=== PATIENT | female | born 1980 | race Caucasian/White ===

== ENCOUNTER → 2016-09-27 | Outpatient (REF) | payer BC | LOC: M LAB REF 16:16 | PROVIDERS: ATTEND Physician Assistant | DX: N39.0 Urinary tract infection, site not specified (principal) ==

== ENCOUNTER 2017-01-09 16:00 | Emergency (ER) | payer OTHER, BC ==
[~2017-01-09] VITALS: Ht 162.6 cm; Wt 54.4 kg
[2017-01-09] MEDS ORDERED: CITA20TA4 (16:25)
[2017-01-09] MEDS ORDERED: PREM.6256 (16:25)
[2017-01-09] MEDS ORDERED: METO50TA2 (16:25)
[2017-01-09] MEDS ORDERED: CLON0.12 (16:25)
[2017-01-09] MEDS ORDERED: POTA10TAB (16:25)
[2017-01-09] MEDS ORDERED: AMLO5TAB2 (16:25)
[2017-01-09 17:49] VITALS: BP 146/86
--- NOTE | 2017-01-10 07:31 | REP ---
LEFT HAND SERIES, COMPLETE: 01/09/2017. Clinical history: Trauma. Findings: Four views show distal radius and ulna, carpal bones, metacarpals and phalanges without fracture or focal lesion. I see no avulsion or erosion. No foreign body. Impression: 1. No fracture, avulsion, subluxation, foreign body or focal bone lesion. Signed by Isaiah Mitchell MD 01/10/2017 05:14 P
--- NOTE | 2017-01-10 07:32 | REP ---
LEFT FOOT SERIES COMPLETE: 01/09/2017. Clinical history: Trauma. Findings: No prior study. Four views show the subtalar joints intact. No heel spurs. Talus and calcaneus without fracture or focal lesion. There are a couple of accessory ossicles adjacent to the medial margin of the navicular. Talonavicular and calcaneocuboid joints are normal. Tarsal bones and their articulations intact as are their metatarsals adjacent. MTP joint shows minor degenerative change of the great toe while the other MTP joints, phalanges and IP joints grossly intact. Impression: 1. No visible or displaced fracture, avulsion, subluxation or acute bony finding. There are very minimal degenerative changes first MTP joint. Signed by Isaiah Mitchell MD 01/10/2017 05:14 P
== END 2017-01-09 18:24 | disposition home or self-care (01) ==
LOC: M ED 16:55
DX: S09.90XA Unspecified injury of head, initial encounter (principal); S93.602A Unspecified sprain of left foot, initial encounter; S63.92XA Sprain of unspecified part of left wrist and hand, initial encounter; W03.XXXA Other fall on same level due to collision with another person, initial encounter; Y92.238 Other place in hospital as the place of occurrence of the external cause; Y93.89 Activity, other specified; Y99.0 Civilian activity done for income or pay

== ENCOUNTER → 2017-02-22 | Outpatient (CLI) | payer BC ==
[~2017-02-22] MED LIST: AMLO5TAB2; CITA20TA4; CLON0.12; METO50TA2; POTA10TAB; PREM.6256
[2017-02-22 12:01] LABS: PERCENT SATURATION 35.2 % (13.2-37.4)
[2017-02-23 11:02] LABS: PRETREATED FOLATE FOR RBCFOL 9.4 NG/ML
== END ==
LOC: M LAB 10:39
PROVIDERS: ATTEND Nurse Practitioner Adult Health
DX: D64.9 Anemia, unspecified (principal)

== ENCOUNTER 2017-04-04 17:12 | Emergency (ER) | payer BC ==
[~2017-04-04] VITALS: Ht 167.6 cm; Wt 59.3 kg
[~2017-04-04 17:12] MED LIST changes: -METO50TA2; +METO50TA7
[2017-04-04] MEDS ORDERED: KETOROLAC 60 MG/2 ML VIAL (J1885) IM ONE (18:15)
[2017-04-04] MEDS ORDERED: METHOCARBAMOL 500 MG TAB PO ONE (18:15)
[2017-04-04] MEDS ORDERED: IBUP80TA PO (18:28)
[2017-04-04] MEDS ORDERED: ROBA500T PO (18:28)
[2017-04-04 18:31] VITALS: BP 127/89
== END 2017-04-04 18:36 | disposition home or self-care (01) ==
LOC: M ED 17:12
DX: S39.012A Strain of muscle, fascia and tendon of lower back, initial encounter (principal); I10 Essential (primary) hypertension; F32.9 Major depressive disorder, single episode, unspecified; X58.XXXA Exposure to other specified factors, initial encounter; Y92.89 Other specified places as the place of occurrence of the external cause; Y93.89 Activity, other specified; Y99.9 Unspecified external cause status
CPT/HCPCS: 81001; 96372; 99282; J1885

== ENCOUNTER → 2017-04-06 | Outpatient (REF) | payer BC ==
[~2017-04-06] MED LIST changes: +Birth control PO; +IBUP80TA PO; +ROBA500T PO; +TOBR0.3S37 OS
== END ==
LOC: M LAB REF 16:20
PROVIDERS: ATTEND Nurse Practitioner Adult Health
DX: N92.6 Irregular menstruation, unspecified (principal)

== ENCOUNTER → 2017-04-13 | Outpatient (REF) | payer BC | LOC: M LAB REF 17:14 | PROVIDERS: ATTEND Nurse Practitioner Adult Health | DX: N93.9 Abnormal uterine and vaginal bleeding, unspecified (principal) ==

== ENCOUNTER 2017-06-22 22:37 | Emergency (ER) | payer BC ==
[~2017-06-22] VITALS: Ht 167.6 cm; Wt 55.9 kg
[2017-06-22 22:37] VITALS: BP 150/99
[~2017-06-22 22:37] MED LIST changes: -Birth control PO; -TOBR0.3S37 OS
[2017-06-22] MEDS ORDERED: Birth control PO (22:46)
[2017-06-22] MEDS ORDERED: TOBR0.3S37 OS (23:41)
[2017-06-22] MEDS ORDERED: FLUORESCEIN OPHTH 1 MG STRIP OS ONE (23:45)
[2017-06-22] MEDS ORDERED: TETRACAINE 0.5% OPHTH SOLN 4ML OS ONE (23:45)
== END 2017-06-23 00:29 | disposition home or self-care (01) ==
LOC: M ED 22:37
DX: S05.02XA Injury of conjunctiva and corneal abrasion without foreign body, left eye, initial encounter (principal); X58.XXXA Exposure to other specified factors, initial encounter; Y92.89 Other specified places as the place of occurrence of the external cause; Y93.89 Activity, other specified; Y99.8 Other external cause status; Z79.899 Other long term (current) drug therapy; Z87.891 Personal history of nicotine dependence

== ENCOUNTER → 2017-12-26 | Outpatient (CLI) | payer BC | LOC: M RAD 17:07 | DX: N20.0 Calculus of kidney (principal) | CPT/HCPCS: 76775 ==

== ENCOUNTER → 2018-03-05 | Outpatient (CLI) | payer BC ==
[2018-03-05 13:39] LABS: BASO # 0.1 10^3/uL (0.0-0.2); BASO % 1.5 % (0.0-1.0); EOS % 0.2 % (0.0-3.0); HEMATOCRIT 39.5 % (36.0-47.0); HEMOGLOBIN 12.8 g/dl (12.0-15.5); IMMATURE GRANULOCYTE % 0.2 % (0-3.0); LYMPH # 1.6 10^3/uL (1.5-4.5); LYMPH % 29.9 % (24.0-44.0); MEAN CORPUSCULAR HEMOGLOBIN 28.9 pg (27.0-33.0); MEAN CORPUSCULAR HGB CONC 32.4 g/dl (32.0-36.5); MEAN CORPUSCULAR VOLUME 89.2 fl (80.0-96.0); MONO # 0.3 10^3/uL (0.0-0.8); MONO % 4.6 % (0.0-5.0); NEUTROPHILS # 3.5 10^3/uL (1.8-7.7); NEUTROPHILS % 63.6 % (36.0-66.0); PLATELET COUNT, AUTOMATED 253 10^3/uL (150-450); RED BLOOD COUNT 4.43 10^6/uL (4.00-5.40); RED CELL DISTRIBUTION WIDTH 13.7 % (11.5-14.5); WHITE BLOOD COUNT 5.5 10^3/uL (4.0-10.0)
[2018-03-05 14:02] LABS: ALBUMIN 3.5 GM/DL (3.2-5.2); ALKALINE PHOSPHATASE 56 U/L (45-117); ALT/SGPT 20 U/L (12-78); ANION GAP 6 MEQ/L (8-16); AST/SGOT 15 U/L (7-37); BILIRUBIN,TOTAL 0.4 MG/DL (0.2-1.0); BLOOD UREA NITROGEN 12 MG/DL (7-18); CALCIUM LEVEL 8.7 MG/DL (8.5-10.1); CARBON DIOXIDE LEVEL 26 MEQ/L (21-32); CHLORIDE LEVEL 106 MEQ/L (98-107); CREATININE FOR GFR 0.85 MG/DL (0.55-1.30); GLOMERULAR FILTRATION RATE > 60.0 (>60); GLUCOSE, FASTING 77 MG/DL (70-100); POTASSIUM SERUM 4.2 MEQ/L (3.5-5.1); RHEUMATOID FACTOR QUANT < 10.0 IU/ML (<15.0); SODIUM LEVEL 138 MEQ/L (136-145)
[2018-03-05 14:03] LABS: TOTAL 25(OH) VITAMIN D 25.2 NG/ML (30.0-100.0)
[2018-03-05 14:24] LABS: ERYTHROCYTE SEDIMENTATION RATE 12 mm/hr (0-20)
[2018-03-07 14:19] LABS: ANTINUCLEAR ANTIBODIES DIRECT Negative (Negative)
== END ==
LOC: M LAB 12:53
DX: R51 Headache (principal)
CPT/HCPCS: 84443

== ENCOUNTER → 2018-07-21 | Outpatient (REF) | payer BC | LOC: M LAB REF 17:23 | DX: R30.0 Dysuria (principal) | CPT/HCPCS: 87086 ==

== ENCOUNTER → 2018-12-25 | Outpatient (CLI) | payer BC ==
[~2018-12-25] MED LIST changes: -AMLO5TAB2; +AMLO5TAB6; +Birth control PO; -CITA20TA4; +CITA20TA6; +POTA10808; -POTA10TAB; +TOBR0.3S37 OS
--- NOTE | 2018-12-25 09:56 | REP ---
RENAL ULTRASOUND WITH DUPLEX DOPPLER RENAL ARTERY EVALUATION: Real-time ultrasound evaluation of the kidneys performed. Kidneys are normal in size and echotexture, right kidney measuring 1.5 x 5.6 x 4.7 cm and left kidney 9.5 x 4.9 x 5.0 cm. There is no hydronephrosis bilaterally. Calculus in the lower right kidney measures 7 mm. There may also be a calculus in the upper left kidney 6 mm. Urinary bladder is not optimally distended and therefore not optimally evaluated, although no gross abnormality is seen. Real-time ultrasound evaluation and duplex Doppler interrogation of the renal arteries is performed bilaterally. Peak systolic velocity of the abdominal aorta at the level of the renal arteries is 100 cm/s. Main right renal artery demonstrates a peak systolic velocity of 105 cm/s. Renal to aortic ratio on the right is 1.05. Resistive indices are measured in the upper, middle, and lower thirds of the right kidney and range between 0.50 and 0.59. Acceleration times range between 0.027 and 0.039. Peak systolic velocity in the main left renal artery is 85 cm/s, renal to aortic ratio is 0.85. Resistive indices left kidney range between 0.51 and 0.59. Acceleration times range between 0.022 and 0.045. IMPRESSION: Calculus is suspected in each kidney without hydronephrosis. There is no compelling duplex Doppler sonographic evidence of significant renal artery stenosis bilaterally. Electronically Signed by Gilberto aHrrington MD 12/25/2018 10:39 A
== END ==
LOC: M RAD 07:16
PROVIDERS: ATTEND Nurse Practitioner Adult Health
DX: I10 Essential (primary) hypertension (principal); N20.0 Calculus of kidney

== ENCOUNTER → 2019-01-30 | Outpatient (CLI) | payer BC ==
--- NOTE | 2019-01-30 13:43 | REP ---
Clinical: Nephrolithiasis. Technique: Real time gonzalez scale ultrasound examination using curved array transducer. Findings: Right kidney measures 11.1 x 5.5 x 3.5 cm and includes 6 mm nonobstructing midpole calculus. Kidney is normal in echogenicity, size and reniform shape without hydronephrosis, cystic or renal mass lesion. No perinephric collection. Left kidney measures 10.6 x 4.8 x 5.7 cm and includes 9 mm nonobstructing upper pole calculus. Kidney is normal in echogenicity, size, and reniform shape without hydronephrosis, cystic or renal mass lesion. No perinephric collection. Bladder is incompletely distended but grossly normal in appearance. Impression: 1. Solitary bilateral nonobstructing renal calculi. Electronically Signed by Patricio Whitmore MD 01/30/2019 01:34 P
== END ==
LOC: M RAD 10:25
PROVIDERS: ATTEND Internal Medicine Nephrology
DX: N20.0 Calculus of kidney (principal)

== ENCOUNTER 2020-04-28 21:21 | Emergency (ER) | payer BC ==
[~2020-04-28 21:21] MED LIST changes: +AMLO1TAB24; -AMLO5TAB6
[2020-04-28] MEDS ORDERED: KETOROLAC 30 MG/ML 1ML VIAL IV ONE (21:45)
[2020-04-28] MEDS ORDERED: ONDANSETRON 4MG/2ML VIAL IV ONE (21:45)
[2020-04-28 22:01] LABS: BASO # 0.1 10^3/uL (0.0-0.2); BASO % 0.9 % (0.0-1.0); EOS % 0.2 % (0.0-3.0); HEMATOCRIT 36.8 % (36.0-47.0); LYMPH % 29.2 % (24.0-44.0); MEAN CORPUSCULAR HEMOGLOBIN 29.9 pg (27.0-33.0); MEAN CORPUSCULAR HGB CONC 32.6 g/dl (32.0-36.5); MEAN CORPUSCULAR VOLUME 91.5 fl (80.0-96.0); MONO # 0.6 10^3/uL (0.0-0.8); MONO % 5.4 % (0.0-5.0); NEUTROPHILS # 6.5 10^3/uL (1.5-8.5); NEUTROPHILS % 64.1 % (36.0-66.0); PLATELET COUNT, AUTOMATED 259 10^3/uL (150-450); RED BLOOD COUNT 4.02 10^6/uL (4.00-5.40); WHITE BLOOD COUNT 10.1 10^3/uL (4.0-10.0)
[2020-04-28 22:29] LABS: CALCIUM LEVEL 8.9 MG/DL (8.5-10.1); CREATININE FOR GFR 1.23 MG/DL (0.55-1.30); GLOMERULAR FILTRATION RATE 51.7 (>60); POTASSIUM SERUM 4.6 MEQ/L (3.5-5.1)
--- NOTE | 2020-04-28 23:07 | REPVR ---
PROCEDURE INFORMATION: Exam: CT Abdomen And Pelvis Without Contrast Exam date and time: 04/28/2020 10:57 PM Age: 40 years old Clinical indication: Abdominal pain; Generalized; Additional info: Renal colic left TECHNIQUE: Imaging protocol: Computed tomography of the abdomen and pelvis without contrast. Axial, coronal and sagittal reformatted images were created and reviewed. Radiation optimization: All CT scans at this facility use at least one of these dose optimization techniques: automated exposure control; mA and/or kV adjustment per patient size (includes targeted exams where dose is matched to clinical indication); or iterative reconstruction. COMPARISON: OT RENAL US 01/30/2019 10:31 AM FINDINGS: Liver: Unremarkable. Gallbladder and bile ducts: No radiodense gallstones. No biliary ductal dilatation. Pancreas: Unremarkable. Spleen: Unremarkable. Adrenals: Unremarkable. Kidneys and ureters: Mild left-sided hydronephrosis and perinephric/periureteral edema, secondary to an 8 x 5 mm proximal left ureteral calculus (axial image 53 and coronal image 36). 3 mm proximal left ureteral calculus, just proximal to the obstructing calculus. Nonobstructing bilateral renal calculi. Stomach and bowel: Scattered colonic diverticula without evidence of diverticulitis. No obstruction. No bowel wall thickening. No pneumatosis. Appendix: Normal. Intraperitoneal space: No free fluid. No organized fluid collection. No free air. Vasculature: Unremarkable. No aneurysm. Lymph nodes: No pathologically enlarged lymph nodes. Bladder: Mild circumferential urinary bladder wall thickening, likely secondary to underdistention. Reproductive: Unremarkable. Bones/joints: No acute osseous abnormality. Soft tissues: Small, fat containing umbilical hernia. IMPRESSION: 1. Left obstructive uropathy, as described above. 2. Additional findings, as above. Electronically signed by: Isaiah Velázquez On 04/28/2020 23:07:30 PM
[2020-04-28] MEDS ORDERED: PERC5TAB12 PO (23:27)
[2020-04-28] MEDS ORDERED: ZOFR4TAB16 PO (23:27)
[2020-04-28] MEDS ORDERED: OXYCODONE/APAP 5MG/325MG(BULK FOR ED) 1 TABLET PO ONE (23:30)
[2020-04-28 23:47] VITALS: BP 141/86
[2020-05-21] MEDS ORDERED: FLOM0.4C39 PO (15:04)
== END 2020-04-28 23:55 | disposition home or self-care (01) ==
LOC: M ED 21:21
DX: N20.1 Calculus of ureter (principal); N23 Unspecified renal colic; I10 Essential (primary) hypertension; Z79.899 Other long term (current) drug therapy; Z87.891 Personal history of nicotine dependence
CPT/HCPCS: 74176; 80048; 81001; 83690; 85025; 96374; 96375; 99284; J1885; J2405

== ENCOUNTER → 2020-05-18 | Outpatient (CLI) | payer BC ==
[~2020-05-18] MED LIST changes: +FLOM0.4C39 PO; +OXYB5TAB10 PO; +PERC5TAB12 PO; +ZOFR4TAB16 PO
[2020-05-18 14:13] LABS: INR 0.98; PROTHROMBIN TIME 13.2 SECONDS (11.8-14.0)
[2020-05-18 14:23] LABS: APPEARANCE, URINE CLEAR (CLEAR); BACTERIA, URINE AUTO 1+ (NEGATIVE); BILIRUBIN, URINE AUTO NEGATIVE (NEGATIVE); BLOOD, URINE BLOOD NEGATIVE (NEGATIVE); COLOR, URINE STRAW (YELLOW); GLUCOSE, URINE (UA) AUTO NEGATIVE (NEGATIVE); KETONE, URINE AUTO NEGATIVE (NEGATIVE); LEUKOCYTE ESTERASE, URINE AUTO TRACE (NEGATIVE); NITRITE, URINE AUTO NEGATIVE (NEGATIVE); PROTEIN, URINE AUTO NEGATIVE (NEGATIVE); RBC, URINE AUTO 0 /HPF (0-3); SPECIFIC GRAVITY URINE AUTO 1.004 (1.002-1.035); SQUAMOUS EPITHELIAL CELL UR AU 0 /HPF (0-6); UROBILINOGEN, URINE AUTO 0.2 mg/dL (0.0-2.0); WBC, URINE AUTO 2 /HPF (0-3)
[2020-05-18 14:28] LABS: HCG, SERUM QUALITATIVE NEGATIVE (NEGATIVE)
== END ==
LOC: M LAB 13:27
PROVIDERS: ATTEND Nurse Practitioner Women's Health
DX: Z01.812 Encounter for preprocedural laboratory examination (principal); N13.1 Hydronephrosis with ureteral stricture, not elsewhere classified

== ENCOUNTER → 2020-05-22 | Outpatient (CLI) | payer BC | LOC: M LABSMTC 08:05 | PROVIDERS: ATTEND Anesthesiology | DX: Z01.812 Encounter for preprocedural laboratory examination (principal); Z20.828 Contact with and (suspected) exposure to other viral communicable diseases | CPT/HCPCS: C9803; U0003 ==

== ENCOUNTER 2020-05-27 12:22 | Day surgery (SDC) | payer BC ==
[~2020-05-27] VITALS: Ht 167.6 cm; Wt 64.0 kg
[~2020-05-27 12:22] MED LIST changes: +CONRAY-60 60% 50ML VIAL (Q9961) As Ordered ONE; +LIDOCAINE 2% 100MG/5ML SDV (FOR ANES.) As Ordered ONE; +LR 1,000 ML IV ONE; +MIDAZOLAM INJ 2MG/2ML VIAL (J2250 PER 1MG) As Ordered ONE; +ONDANSETRON 4MG/2ML VIAL As Ordered ONE; -OXYB5TAB10 PO; +ceFAZolin SOD 2 GM in IV 1 EA IV ONE; +dexameTHASONE 4 MG/ML 1ML VIAL (J1100 PER 1MG) As Ordered ONE; +fentaNYL 100 MCG/2 ML INJECTION (J3010) As Ordered ONE; +propofoL 200 MG/20 ML VIAL As Ordered ONE
[2020-05-27] MEDS ORDERED: SCOPOLAMINE 1MG TRANSDERMAL PATCH As Ordered ONE (13:05)
[2020-05-27] MEDS ORDERED: SCOPOLAMINE 1MG TRANSDERMAL PATCH TOP ONE (13:15)
[2020-05-27] MEDS ORDERED: ACETAMINOPHEN 1000MG 100ML IV BTL (OFIRMEV) (J0131 PER 10MG) As Ordered ONE (13:35)
[2020-05-27] MEDS ORDERED: OXYB5TAB10 PO (14:30)
[2020-05-27] MEDS ORDERED: PERCOCET 5MG/325MG TAB PO PRN (14:45)
[2020-05-27] MEDS ORDERED: oxyBUTYnin 5 MG TAB PO PRN (14:45)
[2020-05-27] MEDS ORDERED: HYDROMORPHONE HCL 0.5 MG/ 0.5 ML SYRINGE (J1170 PER 1) IV PRN (14:45)
[2020-05-27] MEDS ORDERED: fentaNYL 100 MCG/2 ML INJECTION (J3010) IV PRN (14:45)
[2020-05-27] MEDS ORDERED: oxyCODONE 5MG TAB PO PRN (14:45)
[2020-05-27] MEDS ORDERED: LR 1,000 ML IV SCH (14:45)
[2020-05-27] MEDS ORDERED: ONDANSETRON 4MG/2ML VIAL IV PRN (14:45)
[2020-05-27 16:00] VITALS: BP 149/90
--- NOTE | 2020-06-04 15:06 | REP ---
RETROGRADE PYELOGRAM: 2-VIEWS HISTORY: Stent placement. FLUOROSCOPY TIME: 20 seconds reported. FINDINGS: A sequence of two [id number] fluoroscopically obtained spot radiographs of the abdomen document left ureteral cannulation, contrast injection, and stent placement. ADAM
[2020-06-05 21:06] LABS: CA Hydro Phos 10 % (.); Ca Ox Monohydrate 10 % (.); Size 5x6 mm (.)
--- NOTE | 2020-06-07 07:26 | RO ---
DATE OF OPERATION: May 27, 2020 PRE-PROCEDURE DIAGNOSIS: Left kidney stone. POST-PROCEDURE DIAGNOSIS: Left kidney stone. PROCEDURES: * Cystoscopy. * Left ureteroscopy with laser lithotripsy and basket extraction of stones. * Left retrograde pyelogram with intraoperative interpretative images. * Left ureteral stent placement. SURGEON: Sam Keyes MD. INSPECTOR PACKAGER: None. ANESTHESIA: General. OPERATIVE INDICATIONS: This is a 40-year-old female who was found to have obstructing proximal left ureteral stone measuring up to 8-9 mm in size. She was brought to the operating room today for treatment. DESCRIPTION OF PROCEDURE: The patient was brought to the operating room and general anesthesia was induced. Prophylactic antibiotics were infused. She was placed in the dorsal lithotomy position, prepped, and draped in the usual sterile fashion. A rigid cystoscope was inserted into the urethral meatus and advanced into the bladder. A guidewire was advanced up the left collecting system. I then advanced a ureteral access sheath up the left collecting system. I went up the ureteral access sheath with the flexible ureteroscope and of note, no stones were seen within the ureter. It did appear that the stones had been pushed into the kidney. A 9-mm stone was found in the lower pole calyx. It was fragmented into smaller pieces using a 272 micron laser fiber. All of the fragments were then removed using a basket. I then examined the rest of the kidney and only very tiny stone fragments were seen. All of the tiny stone fragments were small enough to pass. At this point, a retrograde pyelogram was performed and was notable for mild left hydronephrosis with no extravasation. I then withdrew the ureteroscope along with the access sheath and no additional stones were seen inside the ureter. At this point, I utilized the guidewire to advance a 6-Slovenian x 22-32 cm JJ ureteral stent into the left collecting system. The wire was removed and there were adequate curls of the stent in the left renal pelvis and in the bladder. The bladder was then emptied of all fluid. This marked the conclusion of the procedure. The patient was then taken out of the dorsal lithotomy position, awakened from anesthesia, and transported to the recovery room in stable condition. ESTIMATED BLOOD LOSS: 5 mL. COMPLICATIONS: None. SPECIMEN: Kidney stone fragments. PLAN: The patient will follow up in the Urology Clinic in approximately 2-3 weeks for stent removal. [facility] HOSPITALPaulo
== END 2020-05-27 16:00 | disposition home or self-care (01) ==
LOC: M SDC 12:22
PROVIDERS: ATTEND Urology
DX: N20.1 Calculus of ureter (principal); I10 Essential (primary) hypertension; F32.9 Major depressive disorder, single episode, unspecified; R25.1 Tremor, unspecified; Z79.899 Other long term (current) drug therapy
CPT/HCPCS: 52356; 74420; 81025; 82365; 88300; C1769; C1894; C2617; J0131; J0690; J1100; J2250; J2405; J3010; Q9961

== ENCOUNTER → 2020-07-26 | Outpatient (CLI) | payer BC ==
[~2020-07-26] MED LIST changes: -CONRAY-60 60% 50ML VIAL (Q9961) As Ordered ONE; -LIDOCAINE 2% 100MG/5ML SDV (FOR ANES.) As Ordered ONE; -LR 1,000 ML IV ONE; -MIDAZOLAM INJ 2MG/2ML VIAL (J2250 PER 1MG) As Ordered ONE; -ONDANSETRON 4MG/2ML VIAL As Ordered ONE; +OXYB5TAB10 PO; -ceFAZolin SOD 2 GM in IV 1 EA IV ONE; -dexameTHASONE 4 MG/ML 1ML VIAL (J1100 PER 1MG) As Ordered ONE; -fentaNYL 100 MCG/2 ML INJECTION (J3010) As Ordered ONE; -propofoL 200 MG/20 ML VIAL As Ordered ONE
--- NOTE | 2020-07-26 12:31 | REP ---
INDICATION: KIDNEY STONES COMPARISON: 12/25/2018 TECHNIQUE: Real time B-mode gonzalez scale ultrasound examination using curved array transducer. FINDINGS: Right kidney is normal in reniform shape and echogenicity without hydronephrosis, renal cyst or mass. Kidney measures 11.7 x 5.0 x 3.9 cm and includes 6 mm midpole and lower pole nonobstructing calculi. Left kidney is normal in reniform shape and echogenicity without hydronephrosis, renal cyst or mass. Kidney measures 10.7 x 4.8 x 5.3 cm and includes multiple small nonobstructing calculi. Bladder is normal in appearance and bilateral ureteral jets are identified. IMPRESSION: Bilateral nephrolithiasis. No hydronephrosis. <Electronically signed by Patricio Whitmore > 07/26/20 [id number]
== END ==
LOC: M RAD 10:40
PROVIDERS: ATTEND Urology
DX: N20.0 Calculus of kidney (principal)

== ENCOUNTER → 2020-08-22 | Outpatient (CLI) | payer BC | LOC: M LABSMTC 09:24 | PROVIDERS: ATTEND Pediatrics | DX: Z20.828 Contact with and (suspected) exposure to other viral communicable diseases (principal) ==

== ENCOUNTER → 2021-02-03 | Outpatient (CLI) | payer BC ==
[2021-02-03 17:19] LABS: BLOOD UREA NITROGEN 14 MG/DL (7-18); CREATININE FOR GFR 0.67 MG/DL (0.55-1.30); GLOMERULAR FILTRATION RATE > 60.0 (>60)
== END ==
LOC: M LAB 16:08
PROVIDERS: ATTEND Psychiatry & Neurology Neurology
DX: I10 Essential (primary) hypertension (principal)

== ENCOUNTER 2021-04-05 12:32 | Emergency (ER) | payer BC ==
[~2021-04-05] VITALS: Ht 167.6 cm; Wt 65.9 kg
[2021-04-05 12:36] VITALS: BP 134/92
[2021-04-05] MEDS ORDERED: PRED20TA PO (15:00)
== END 2021-04-05 15:15 | disposition home or self-care (01) ==
LOC: M ED 12:32
DX: L25.9 Unspecified contact dermatitis, unspecified cause (principal); I10 Essential (primary) hypertension; F33.9 Major depressive disorder, recurrent, unspecified; Z79.3 Long term (current) use of hormonal contraceptives; Z79.899 Other long term (current) drug therapy

== ENCOUNTER → 2021-05-05 | Outpatient (CLI) | payer BC ==
[~2021-05-05] MED LIST changes: +PRED20TA PO
--- NOTE | 2021-05-05 16:03 | REPMRS ---
Patient History The patient states she had a clinical breast exam in December 2020. Patient is nulliparous. No known family history of cancer. Taking hormonal contraceptives for 4 years. Baseline No breast complaints today Patient signed the MRS sheet 1st covid vaccine 08/26/20-left arm-Pfizer 2nd covid vaccine 09/16/20-left arm Patient Identification Verified Patient denied No [employer] [facility] Woman Screen Mammo: May 05, 2021 - Exam #: [id number] Bilateral CC and MLO view(s) were taken. Technologist: Adri Quinonez, Technologist No prior studies available for comparison. FINDINGS: The breast tissue is heterogeneously dense. This may lower the sensitivity of mammography. The Volpara volumetric breast density category is: C. There is no evidence of dominant mass, architectural distortion, or grouped microcalcification typical of malignancy. 3-D tomosynthesis shows no additional findings. Assessment: BI-RADS/ACR category 1 mammogram. Negative Mammogram. Recommendation Routine screening mammogram of both breasts in 1 year (for women over age 40). This patient's [facility] Lifetime Breast Cancer RIsk is estimated at 13.5 %. This mammogram was interpreted with the aid of an FDA-approved computer-aided dectection system. Electronically Signed By: Panda Mccrary MD 05/05/21 [id number]
== END ==
LOC: M WHC 13:54
PROVIDERS: ATTEND Nurse Practitioner Adult Health
DX: Z12.31 Encounter for screening mammogram for malignant neoplasm of breast (principal)

== ENCOUNTER 2021-07-17 19:39 | Emergency (ER) | payer BC ==
[~2021-07-17] VITALS: Ht 162.6 cm; Wt 64.1 kg
[2021-07-17 19:40] VITALS: BP 156/96
[2021-07-17] MEDS ORDERED: valACYclovir HCL 500 MG TAB PO ONE (22:55)
[2021-07-17] MEDS ORDERED: VALT1TAB PO (22:57)
[2021-07-17] MEDS ORDERED: HYDR-3713 PO (22:58)
== END 2021-07-17 23:11 | disposition home or self-care (01) ==
LOC: M ED 19:39
DX: B02.9 Zoster without complications (principal); I10 Essential (primary) hypertension; Z87.442 Personal history of urinary calculi; Z79.899 Other long term (current) drug therapy; Z79.3 Long term (current) use of hormonal contraceptives

== ENCOUNTER → 2022-02-22 | Outpatient (REF) | payer BC ==
[~2022-02-22] MED LIST changes: +HYDR-3713 PO; +VALT1TAB PO
[2022-02-22 18:11] LABS: APPEARANCE, URINE CLEAR (CLEAR); BACTERIA, URINE AUTO NEGATIVE (NEGATIVE); BILIRUBIN, URINE AUTO NEGATIVE (NEGATIVE); BLOOD, URINE BLOOD NEGATIVE (NEGATIVE); COLOR, URINE YELLOW (YELLOW); GLUCOSE, URINE (UA) AUTO NEGATIVE (NEGATIVE); KETONE, URINE AUTO NEGATIVE (NEGATIVE); LEUKOCYTE ESTERASE, URINE AUTO NEGATIVE (NEGATIVE); NITRITE, URINE AUTO NEGATIVE (NEGATIVE); PROTEIN, URINE AUTO NEGATIVE (NEGATIVE); RBC, URINE AUTO 0 /HPF (0-3); SPECIFIC GRAVITY URINE AUTO 1.008 (1.002-1.035); SQUAMOUS EPITHELIAL CELL UR AU 0 /HPF (0-6); UROBILINOGEN, URINE AUTO 0.2 mg/dL (0.0-2.0); WBC, URINE AUTO 1 /HPF (0-3)
== END ==
LOC: M LAB REF 16:18
PROVIDERS: ATTEND Physician Assistant
DX: N39.0 Urinary tract infection, site not specified (principal)

== ENCOUNTER → 2022-03-02 | Outpatient (REF) | payer BC ==
[~2022-03-02] MED LIST changes: +KETO10TAB PO
== END ==
LOC: M LAB REF 16:24
PROVIDERS: ATTEND Physician Assistant
DX: N39.0 Urinary tract infection, site not specified (principal)

== ENCOUNTER 2022-03-05 14:39 | Emergency (ER) | payer BC ==
[~2022-03-05] VITALS: Ht 165.1 cm; Wt 69.3 kg
[~2022-03-05 14:39] MED LIST changes: -KETO10TAB PO
[2022-03-05 15:30] LABS: HEMATOCRIT 37.9 % (36.0-47.0); HEMOGLOBIN 12.3 g/dl (12.0-15.5); MEAN CORPUSCULAR HEMOGLOBIN 29.3 pg (27.0-33.0); MEAN CORPUSCULAR HGB CONC 32.5 g/dl (32.0-36.5); MEAN CORPUSCULAR VOLUME 90.2 fl (80.0-96.0); PLATELET COUNT, AUTOMATED 293 10^3/uL (150-450); WHITE BLOOD COUNT 13.1 10^3/uL (4.0-10.0)
[2022-03-05 15:52] LABS: BLOOD UREA NITROGEN 18 MG/DL (7-18); CARBON DIOXIDE LEVEL 24 MEQ/L (21-32); CHLORIDE LEVEL 107 MEQ/L (98-107); CREATININE FOR GFR 1.23 MG/DL (0.55-1.30); GLOMERULAR FILTRATION RATE 51.5 (>58); GLUCOSE, FASTING 85 MG/DL (70-100); POTASSIUM SERUM 3.9 MEQ/L (3.5-5.1); SODIUM LEVEL 139 MEQ/L (136-145)
[2022-03-05 15:56] LABS: HCG, SERUM QUALITATIVE NEGATIVE (NEGATIVE)
[2022-03-05] MEDS ORDERED: KETO10TAB PO (16:54)
[2022-03-05] MEDS ORDERED: PERC5TAB12 PO (16:55)
[2022-03-05] MEDS ORDERED: PERCOCET 5MG/325MG TAB PO ONE (16:55)
[2022-03-05] MEDS ORDERED: KETOROLAC TROMETHAMINE 10 MG TAB PO ONE (16:55)
[2022-03-05] MEDS ORDERED: FLOM0.4C39 PO (16:56)
[2022-03-05 17:42] VITALS: BP 123/64
== END 2022-03-05 17:43 | disposition home or self-care (01) ==
LOC: M ED 14:39
DX: N20.2 Calculus of kidney with calculus of ureter (principal); F33.9 Major depressive disorder, recurrent, unspecified; F41.9 Anxiety disorder, unspecified; Z79.899 Other long term (current) drug therapy; Z79.3 Long term (current) use of hormonal contraceptives

== ENCOUNTER → 2022-03-15 | Outpatient (CLI) | payer BC ==
[~2022-03-15] MED LIST changes: +KETO10TAB PO
== END ==
LOC: M RAD 08:49
PROVIDERS: ATTEND Nurse Practitioner Women's Health
DX: N20.0 Calculus of kidney (principal)

== ENCOUNTER → 2022-03-20 | Outpatient (REF) | payer BC | LOC: M SFHCWAGY 12:47 | PROVIDERS: ATTEND Nurse Practitioner Women's Health | DX: N20.0 Calculus of kidney (principal) ==

== ENCOUNTER → 2022-03-21 | Outpatient (CLI) | payer BC ==
[2022-03-21 10:51] LABS: HEMATOCRIT 37.3 % (36.0-47.0); HEMOGLOBIN 11.9 g/dl (12.0-15.5); MEAN CORPUSCULAR HEMOGLOBIN 29.2 pg (27.0-33.0); MEAN CORPUSCULAR HGB CONC 31.9 g/dl (32.0-36.5); MEAN CORPUSCULAR VOLUME 91.4 fl (80.0-96.0); PLATELET COUNT, AUTOMATED 305 10^3/uL (150-450); RED BLOOD COUNT 4.08 10^6/uL (4.00-5.40); WHITE BLOOD COUNT 6.8 10^3/uL (4.0-10.0)
[2022-03-21 11:01] LABS: APPEARANCE, URINE HAZY (CLEAR); BACTERIA, URINE AUTO 2+ (NEGATIVE); BILIRUBIN, URINE AUTO NEGATIVE (NEGATIVE); BLOOD, URINE BLOOD NEGATIVE (NEGATIVE); COLOR, URINE YELLOW (YELLOW); GLUCOSE, URINE (UA) AUTO NEGATIVE (NEGATIVE); KETONE, URINE AUTO NEGATIVE (NEGATIVE); LEUKOCYTE ESTERASE, URINE AUTO 1+ (NEGATIVE); MUCUS, URINE SMALL (NEGATIVE); NITRITE, URINE AUTO NEGATIVE (NEGATIVE); PROTEIN, URINE AUTO NEGATIVE (NEGATIVE); RBC, URINE AUTO 1 /HPF (0-3); SPECIFIC GRAVITY URINE AUTO 1.006 (1.002-1.035); SQUAMOUS EPITHELIAL CELL UR AU 1 /HPF (0-6); UROBILINOGEN, URINE AUTO 0.2 mg/dL (0.0-2.0); WBC, URINE AUTO 3 /HPF (0-3)
[2022-03-21 11:13] LABS: BLOOD UREA NITROGEN 13 MG/DL (7-18); CALCIUM LEVEL 9.1 MG/DL (8.5-10.1); CARBON DIOXIDE LEVEL 26 MEQ/L (21-32); CHLORIDE LEVEL 108 MEQ/L (98-107); CREATININE FOR GFR 1.05 MG/DL (0.55-1.30); GLOMERULAR FILTRATION RATE > 60.0 (>58); GLUCOSE, FASTING 78 MG/DL (70-100); POTASSIUM SERUM 5.2 MEQ/L (3.5-5.1); SODIUM LEVEL 141 MEQ/L (136-145)
[2022-03-21 11:25] LABS: INR 0.94; PARTIAL THROMBOPLASTIN TIME 30.8 SECONDS (25.9-37.0)
== END ==
LOC: M LAB 10:09
PROVIDERS: ATTEND Nurse Practitioner Women's Health
DX: Z01.818 Encounter for other preprocedural examination (principal); N20.0 Calculus of kidney

== ENCOUNTER → 2022-03-26 | Outpatient (CLI) | payer BC | LOC: M LABSMTC 10:29 | PROVIDERS: ATTEND Anesthesiology | DX: Z11.52 Encounter for screening for COVID-19 (principal); Z20.822 Contact with and (suspected) exposure to COVID-19 ==

== ENCOUNTER 2022-03-30 05:58 | Day surgery (SDC) | payer BC ==
[~2022-03-30] VITALS: Ht 170.2 cm; Wt 67.6 kg
[2022-03-30] MEDS ORDERED: ceFAZolin SOD 2 GM in IV 1 EA IV ONE (06:00)
[2022-03-30] MEDS ORDERED: LR 1,000 ML IV SCH ×2 (06:30→07:15)
[2022-03-30] MEDS ORDERED: ONDA4SOL PO (06:44)
[2022-03-30] MEDS ORDERED: ONDANSETRON 4MG 2ML VIAL As Ordered ONE (07:04)
[2022-03-30] MEDS ORDERED: dexameTHASONE 4 MG/ML 1ML VIAL (J1100 PER 1MG) As Ordered ONE (07:04)
[2022-03-30] MEDS ORDERED: propofoL 200 MG/20 ML VIAL As Ordered ONE (07:04)
[2022-03-30] MEDS ORDERED: LIDOCAINE 2% 100MG/5ML SDV (FOR ANES.) As Ordered ONE (07:04)
[2022-03-30] MEDS ORDERED: fentaNYL 100 MCG/2 ML INJECTION As Ordered ONE (07:05)
[2022-03-30] MEDS ORDERED: MIDAZOLAM INJ 2MG/2ML VIAL (J2250 PER 1MG) As Ordered ONE (07:05)
[2022-03-30] MEDS ORDERED: ISOVUE-300 61% 50ML VIAL As Ordered ONE (07:12)
[2022-03-30] MEDS ORDERED: PERCOCET 5MG/325MG TAB PO PRN ×2 (07:15→09:00)
[2022-03-30] MEDS ORDERED: SCOPOLAMINE 1MG TRANSDERMAL PATCH TOP ONE (07:15)
[2022-03-30] MEDS ORDERED: ONDANSETRON 4MG 2ML VIAL IV PRN (07:15)
[2022-03-30] MEDS ORDERED: fentaNYL 100 MCG/2 ML INJECTION IV PRN (07:15)
[2022-03-30] MEDS ORDERED: OXYB5TAB10 PO (07:43)
[2022-03-30] MEDS ORDERED: ACETAMINOPHEN 1000MG 100ML IV BTL (OFIRMEV) (J0131 PER 10MG) As Ordered ONE (08:33)
[2022-03-30] MEDS: MORPHINE 2 MG/ML 1ML VIAL IV PRN ×2 (08:56→09:05)
[2022-03-30] MEDS ORDERED: oxyBUTYnin 5 MG TAB PO PRN (09:00)
[2022-03-30 10:05] VITALS: BP 132/78
== END 2022-03-30 10:30 | disposition home or self-care (01) ==
LOC: M SDC 05:58
PROVIDERS: ATTEND Urology
DX: N20.0 Calculus of kidney (principal); I10 Essential (primary) hypertension; F32.A Depression, unspecified; Z79.899 Other long term (current) drug therapy
CPT/HCPCS: 52332; 52352; 74420; 81025; 82365; C1769; C1894; C2617; J0131; J0690; J1100; J2250; J2270; J2405; J3010; Q9967

== ENCOUNTER → 2022-08-16 | Outpatient (REF) | payer BC ==
[~2022-08-16] MED LIST changes: +ONDA4SOL PO
== END ==
LOC: M LAB REF 12:44
PROVIDERS: ATTEND Nurse Practitioner Adult Health
DX: N39.3 Stress incontinence (female) (male) (principal)

== ENCOUNTER → 2022-10-18 | Outpatient (CLI) | payer BC | LOC: M RAD 09:43 | PROVIDERS: ATTEND Physician Assistant | DX: N20.0 Calculus of kidney (principal) ==

== ENCOUNTER → 2023-02-27 | Outpatient (CLI) | payer BC | LOC: M WHC 07:22 | PROVIDERS: ATTEND Nurse Practitioner Adult Health | DX: Z12.31 Encounter for screening mammogram for malignant neoplasm of breast (principal) ==

== ENCOUNTER → 2023-04-16 | Outpatient (REF) | LOC: M EMP 11:24 | PROVIDERS: ATTEND Family Medicine | DX: Z11.52 Encounter for screening for COVID-19 (principal) ==

== ENCOUNTER → 2023-04-18 | Outpatient (CLI) | payer BC | LOC: M RAD 07:22 | PROVIDERS: ATTEND Physician Assistant | DX: N20.0 Calculus of kidney (principal) ==

== ENCOUNTER → 2023-08-08 | Outpatient (REF) ==
[~2023-08-08] MED LIST changes: -OXYB5TAB10 PO; +OXYB5TAB11 PO
== END ==
LOC: M EMP 08:38
PROVIDERS: ATTEND Family Medicine
DX: Z11.52 Encounter for screening for COVID-19 (principal)

== ENCOUNTER → 2023-10-19 | Outpatient (CLI) | payer BC ==
[~2023-10-19] MED LIST changes: -OXYB5TAB11 PO; +OXYB5TAB14 PO
== END ==
LOC: M RAD 07:42
PROVIDERS: ATTEND Physician Assistant
DX: N20.0 Calculus of kidney (principal)

== ENCOUNTER → 2023-12-06 | Outpatient (REF) | LOC: M EMP 08:19 | PROVIDERS: ATTEND Family Medicine | DX: Z20.828 Contact with and (suspected) exposure to other viral communicable diseases (principal) ==

== ENCOUNTER → 2023-12-06 | Outpatient (REF) | LOC: M EMP 08:04 | PROVIDERS: ATTEND Family Medicine | DX: Z20.822 Contact with and (suspected) exposure to COVID-19 (principal) ==

== ENCOUNTER → 2023-12-07 | Outpatient (REF) | LOC: M EMP 09:40 | PROVIDERS: ATTEND Family Medicine | DX: Z11.52 Encounter for screening for COVID-19 (principal) ==

== ENCOUNTER → 2023-12-10 | Outpatient (REF) | LOC: M EMP 07:56 | PROVIDERS: ATTEND Family Medicine | DX: Z01.89 Encounter for other specified special examinations (principal) ==

== ENCOUNTER 2024-01-01 12:38 | Emergency (ER) | payer OTHER, BC ==
[~2024-01-01] VITALS: Ht 167.6 cm; Wt 67.1 kg
[2024-01-01] MEDS ORDERED: IBUP200C25 PO (12:49)
[2024-01-01 13:36] LABS: BASO # 0.1 10^3/uL (0.0-0.2); BASO % 1.2 % (0.0-1.0); HEMATOCRIT 40.7 % (36.0-47.0); HEMOGLOBIN 13.5 g/dl (12.0-15.5); LYMPH # 2.6 10^3/uL (1.5-5.0); LYMPH % 34.7 % (24.0-44.0); MEAN CORPUSCULAR HEMOGLOBIN 29.7 pg (27.0-33.0); MEAN CORPUSCULAR HGB CONC 33.2 g/dl (32.0-36.5); MEAN CORPUSCULAR VOLUME 89.5 fl (80.0-96.0); MONO # 0.4 10^3/uL (0.0-0.8); MONO % 5.7 % (2.0-8.0); NEUTROPHILS # 4.3 10^3/uL (1.5-8.5); NEUTROPHILS % 58.3 % (36.0-66.0); PLATELET COUNT, AUTOMATED 250 10^3/uL (150-450); RED BLOOD COUNT 4.55 10^6/uL (4.00-5.40); WHITE BLOOD COUNT 7.4 10^3/uL (4.0-10.0)
[2024-01-01 14:14] LABS: BLOOD UREA NITROGEN 14 MG/DL (9-23); CALCIUM LEVEL 9.6 MG/DL (8.5-10.1); CARBON DIOXIDE LEVEL 24 MMOL/L (20-31); CHLORIDE LEVEL 103 MMOL/L (98-107); CREATININE FOR GFR 0.75 MG/DL (0.55-1.30); GLOMERULAR FILTRATION RATE > 60.0 (>58); GLUCOSE, FASTING 80 MG/DL (60-100); MAGNESIUM LEVEL 2.1 MG/DL (1.8-2.4); POTASSIUM SERUM 3.5 MMOL/L (3.5-5.1); SODIUM LEVEL 137 MMOL/L (136-145)
[2024-01-01 14:17] LABS: FREE T4 1.02 NG/DL (0.89-1.76); THYROID STIMULATING HORMONE 2.157 uIU/ML (0.55-4.78)
[2024-01-01] MEDS: DERMABOND TOPICAL SKIN ADHESIVE TOP ONE (14:30)
[2024-01-01 14:45] VITALS: BP 139/93; TEMP 98.3; O2SAT 98
== END 2024-01-01 14:58 | disposition home or self-care (01) ==
LOC: M ED 12:38
DX: S01.81XA Laceration without foreign body of other part of head, initial encounter (principal); M54.32 Sciatica, left side; Y92.9 Unspecified place or not applicable; Y93.9 Activity, unspecified; Y99.9 Unspecified external cause status; W19.XXXA Unspecified fall, initial encounter; I10 Essential (primary) hypertension; F41.9 Anxiety disorder, unspecified; F32.9 Major depressive disorder, single episode, unspecified; Z79.1 Long term (current) use of non-steroidal anti-inflammatories (NSAID); Z79.899 Other long term (current) drug therapy

== ENCOUNTER → 2024-02-08 | Outpatient (CLI) | payer BC ==
[~2024-02-08] MED LIST changes: +IBUP200C25 PO
== END ==
LOC: M PLAIMG 12:42
PROVIDERS: ATTEND Nurse Practitioner Family
DX: R55 Syncope and collapse (principal)

== ENCOUNTER → 2024-04-08 | Outpatient (REF) | payer BC | LOC: M SFHCWAGY 16:54 | PROVIDERS: ATTEND Nurse Practitioner Family | DX: N73.9 Female pelvic inflammatory disease, unspecified (principal) ==

== ENCOUNTER → 2024-04-08 | Outpatient (CLI) | payer BC | LOC: M WHC 13:49 | PROVIDERS: ATTEND Nurse Practitioner Family | DX: Z12.31 Encounter for screening mammogram for malignant neoplasm of breast (principal) ==

== ENCOUNTER 2024-04-15 10:33 | Outpatient (RCR) | payer BC | END 2024-05-03 | LOC: M PT 10:33 | PROVIDERS: ATTEND Family Medicine | DX: M54.32 Sciatica, left side (principal) ==

== ENCOUNTER → 2024-04-15 | Outpatient (CLI) | payer BC | LOC: M RAD 11:24 | PROVIDERS: ATTEND Physician Assistant | DX: N20.0 Calculus of kidney (principal) ==

== ENCOUNTER → 2024-05-12 | Outpatient (REF) | LOC: M EMP 11:18 | PROVIDERS: ATTEND Family Medicine | DX: Z20.828 Contact with and (suspected) exposure to other viral communicable diseases (principal) ==

== ENCOUNTER → 2024-10-22 | Outpatient (CLI) | payer BC ==
[~2024-10-22] MED LIST changes: -POTA10808; +POTA10809
== END ==
LOC: M RAD 12:19
PROVIDERS: ATTEND Physician Assistant
DX: N20.0 Calculus of kidney (principal)

== ENCOUNTER 2024-10-24 19:52 | Emergency (ER) | payer BC ==
[~2024-10-24] VITALS: Ht 167.6 cm; Wt 69.9 kg
[2024-10-24 23:03] VITALS: BP 138/84; TEMP 97.1; O2SAT 96
== END 2024-10-24 23:07 | disposition home or self-care (01) ==
LOC: M ED 19:52
DX: T16.1XXA Foreign body in right ear, initial encounter (principal); Z79.1 Long term (current) use of non-steroidal anti-inflammatories (NSAID); Z79.899 Other long term (current) drug therapy

== ENCOUNTER → 2024-11-07 | Outpatient (REF) | LOC: M EMP 09:35 | PROVIDERS: ATTEND Family Medicine | DX: Z11.52 Encounter for screening for COVID-19 (principal) ==

== ENCOUNTER → 2024-12-28 | Outpatient (REF) | payer BC ==
[~2024-12-28] MED LIST changes: -FLOM0.4C39 PO; +TAMS-18 PO
[2024-12-28 18:59] LABS: APPEARANCE, URINE CLEAR (CLEAR); BACTERIA, URINE AUTO 1+ (NEGATIVE); BILIRUBIN, URINE AUTO NEGATIVE (NEGATIVE); BLOOD, URINE BLOOD NEGATIVE (NEGATIVE); COLOR, URINE AMBER (YELLOW); GLUCOSE, URINE (UA) AUTO NEGATIVE (NEGATIVE); KETONE, URINE AUTO NEGATIVE (NEGATIVE); LEUKOCYTE ESTERASE, URINE AUTO NEGATIVE (NEGATIVE); MUCUS, URINE SMALL (NEGATIVE); NITRITE, URINE AUTO POSITIVE (NEGATIVE); PROTEIN, URINE AUTO NEGATIVE (NEGATIVE); RBC, URINE AUTO 1 /HPF (0-3); SPECIFIC GRAVITY URINE AUTO 1.012 (1.002-1.035); SQUAMOUS EPITHELIAL CELL UR AU 0 /HPF (0-6); WBC, URINE AUTO 3 /HPF (0-3)
== END ==
LOC: M LAB REF 18:06
PROVIDERS: ATTEND Physician Assistant Medical
DX: N39.0 Urinary tract infection, site not specified (principal)

== ENCOUNTER → 2025-01-02 | Outpatient (REF) | payer BC ==
[2025-01-02 17:54] LABS: APPEARANCE, URINE CLEAR (CLEAR); BACTERIA, URINE AUTO 1+ (NEGATIVE); BILIRUBIN, URINE AUTO NEGATIVE (NEGATIVE); BLOOD, URINE BLOOD NEGATIVE (NEGATIVE); COLOR, URINE AMBER (YELLOW); GLUCOSE, URINE (UA) AUTO NEGATIVE (NEGATIVE); KETONE, URINE AUTO NEGATIVE (NEGATIVE); LEUKOCYTE ESTERASE, URINE AUTO NEGATIVE (NEGATIVE); NITRITE, URINE AUTO NEGATIVE (NEGATIVE); PROTEIN, URINE AUTO NEGATIVE (NEGATIVE); RBC, URINE AUTO 0 /HPF (0-3); SPECIFIC GRAVITY URINE AUTO 1.014 (1.002-1.035); SQUAMOUS EPITHELIAL CELL UR AU 0 /HPF (0-6); WBC, URINE AUTO 2 /HPF (0-3)
== END ==
LOC: M LAB REF 17:02
PROVIDERS: ATTEND Physician Assistant
DX: N39.0 Urinary tract infection, site not specified (principal)

== ENCOUNTER → 2025-01-20 | Outpatient (CLI) | payer BC | LOC: M RAD 10:55 | PROVIDERS: ATTEND Physician Assistant | DX: N20.0 Calculus of kidney (principal) ==

== ENCOUNTER → 2025-04-09 | Outpatient (CLI) | payer BC | LOC: M WHC 12:51 | PROVIDERS: ATTEND Nurse Practitioner Family | DX: Z12.31 Encounter for screening mammogram for malignant neoplasm of breast (principal); R92.333 Mammographic heterogeneous density, bilateral breasts; Z12.4 Encounter for screening for malignant neoplasm of cervix | CPT/HCPCS: 77063; 77067; 87624; G0123 ==

== ENCOUNTER → 2025-04-09 | Outpatient (REF) | payer BC ==
[2025-04-11 12:27] LABS: HPV APTIMA Not Detected (Not Detected)
== END ==
LOC: M SFHCWAGY 17:28
PROVIDERS: ATTEND Nurse Practitioner Family
DX: Z12.4 Encounter for screening for malignant neoplasm of cervix (principal)

== ENCOUNTER → 2025-05-06 | Outpatient (REF) | LOC: M EMP 10:25 | PROVIDERS: ATTEND Family Medicine | DX: Z11.52 Encounter for screening for COVID-19 (principal) ==

== ENCOUNTER → 2025-07-07 | Outpatient (CLI) | payer BC | LOC: M RAD 15:31 | PROVIDERS: ATTEND Physician Assistant | DX: N20.0 Calculus of kidney (principal) ==